=== PATIENT | male | born 1990 | race Caucasian/White ===

== ENCOUNTER 2022-06-16 17:17 | Emergency (ER) | payer SELFPAY ==
[~2022-06-16] VITALS: Ht 162.6 cm; Wt 54.5 kg
[2022-06-16 18:14] VITALS: BP 135/74
== END 2022-06-16 19:17 | disposition home or self-care (01) ==
LOC: EMS 17:19
DX: R46.89 Other symptoms and signs involving appearance and behavior (principal)
CPT/HCPCS: 99281